=== PATIENT | female | born 1985 | race Caucasian/White ===

== ENCOUNTER 2019-07-23 06:45 | Emergency (ER) | payer OTHER ==
[~2019-07-23] VITALS: Ht 170.2 cm; Wt 78.0 kg
[2019-07-23 06:45] VITALS: BP 146/98
[2019-07-23] MEDS: KETOROLAC 60 MG/2 ML VIAL IM ONE (07:45)
[2019-07-23 07:58] VITALS: BP 146/98
== END 2019-07-23 07:59 | disposition home or self-care (01) ==
LOC: MED 06:45
DX: S50.01XA Contusion of right elbow, initial encounter (principal); I10 Essential (primary) hypertension; W01.0XXA Fall on same level from slipping, tripping and stumbling without subsequent striking against object, initial encounter; Y93.89 Activity, other specified; Y92.89 Other specified places as the place of occurrence of the external cause; Y99.8 Other external cause status
CPT/HCPCS: 73080; 96372; 99283; J1885; Q0092

== ENCOUNTER 2019-07-31 05:05 | Emergency (ER) | payer OTHER ==
[~2019-07-31] VITALS: Ht 170.2 cm; Wt 78.0 kg
[2019-07-31 05:10] VITALS: BP 147/87
[2019-07-31] MEDS ORDERED: KETOROLAC 30 MG/ML VIAL IM ONE (05:20)
[2019-07-31 07:27] VITALS: BP 147/87
== END 2019-07-31 07:28 | disposition home or self-care (01) ==
LOC: MED 05:05
DX: S82.891A Other fracture of right lower leg, initial encounter for closed fracture (principal); M25.561 Pain in right knee; I10 Essential (primary) hypertension; V28.0XXA Motorcycle driver injured in noncollision transport accident in nontraffic accident, initial encounter; Y93.55 Activity, bike riding; Y92.89 Other specified places as the place of occurrence of the external cause; Y99.8 Other external cause status
CPT/HCPCS: 29515; 73562; 73610; 96372; 99283; J1885; Q0092

== ENCOUNTER 2020-03-03 16:26 | Emergency (ER) | payer OTHER ==
[~2020-03-03] VITALS: Ht 170.2 cm; Wt 72.6 kg
[2020-03-03 16:30] VITALS: BP 141/78
--- NOTE | 2020-03-03 16:30 | NUR ---
Pt taken to bed 7.
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
--- NOTE | 2020-03-03 16:52 | NUR ---
ERMD BEDSIDE EVALUATING PT
[2020-03-03] MEDS ORDERED: KETOROLAC 60 MG/2 ML VIAL IM ONE (16:55)
--- NOTE | 2020-03-03 17:17 | NUR ---
PT TAKEN TO RAD VIA W/C
--- NOTE | 2020-03-03 17:28 | NUR ---
PT RETURNED FROM CT VIA W/C
--- NOTE | 2020-03-03 18:10 | NUR ---
Patient discharged with v/s stable. Written and verbal after care instructions given and explained. Patient alert, oriented and verbalized understanding of instructions. Ambulatory with steady gait. All questions addressed prior to discharge. ID band removed. Patient advised to follow up with PMD. Rx of Motrin and Tramadol given. Patient educated on indication of medication including possible reaction and side effects. Opportunity to ask questions provided and answered.
[2020-03-03 18:15] VITALS: BP 128/71
== END 2020-03-03 18:10 | disposition home or self-care (01) ==
LOC: MED 16:26
DX: S70.02XA Contusion of left hip, initial encounter (principal); F17.200 Nicotine dependence, unspecified, uncomplicated; I10 Essential (primary) hypertension; V18.0XXA Pedal cycle driver injured in noncollision transport accident in nontraffic accident, initial encounter; Y93.89 Activity, other specified; Y92.89 Other specified places as the place of occurrence of the external cause; Y99.8 Other external cause status
CPT/HCPCS: 73502; 81025; 96372; 99283; J1885

== ENCOUNTER 2020-03-06 14:42 | Emergency (ER) | payer OTHER ==
[~2020-03-06] VITALS: Ht 172.7 cm; Wt 77.1 kg
[2020-03-06 14:50] VITALS: BP 115/78
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
[2020-03-06] MEDS ORDERED: KETOROLAC 60 MG/2 ML VIAL IM ONE (15:05)
[2020-03-06 15:12] VITALS: BP 115/78
--- NOTE | 2020-03-06 15:12 | NUR ---
PT DIRECTED TO WAIT IN LOBBY FOR 20 MINUTES TO ENSURE TO ADVERSE EFFECTS OF TORADOL
== END 2020-03-06 15:12 | disposition home or self-care (01) ==
LOC: MED 14:42
DX: S70.02XA Contusion of left hip, initial encounter (principal); I10 Essential (primary) hypertension; F17.200 Nicotine dependence, unspecified, uncomplicated; Z98.890 Other specified postprocedural states; V87.8XXA Person injured in other specified noncollision transport accidents involving motor vehicle (traffic), initial encounter; Y93.89 Activity, other specified; Y92.89 Other specified places as the place of occurrence of the external cause; Y99.8 Other external cause status
CPT/HCPCS: 96372; 99283; J1885

== ENCOUNTER 2020-03-13 18:19 | Emergency (ER) | payer OTHER ==
[~2020-03-13] VITALS: Ht 170.2 cm; Wt 72.6 kg
[2020-03-13 18:25] VITALS: BP 158/94
--- NOTE | 2020-03-13 18:32 | NUR ---
WAIT AT LOBBY.
--- NOTE | 2020-03-13 19:16 | NUR ---
PT BROUGHT BACK FROM XRAY TO LOBBY.
--- NOTE | 2020-03-13 19:45 | NUR ---
AMBULATED TO A WITH STEADY GAIT.
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
--- NOTE | 2020-03-13 19:50 | NUR ---
EXAMINING PT IN CHAIR A
[2020-03-13] MEDS ORDERED: ACETAMINOPHEN EXTRA STRENGTH 500 MG TAB PO ONE (20:00)
[2020-03-13 20:33] VITALS: BP 158/94
--- NOTE | 2020-03-13 20:34 | NUR ---
PT LEFT FACILITY WITHOUT D/C INSTRUCTIONS.
== END 2020-03-13 20:34 | disposition home or self-care (01) ==
LOC: MED 18:19
DX: M25.561 Pain in right knee (principal); M25.571 Pain in right ankle and joints of right foot; I10 Essential (primary) hypertension; F41.9 Anxiety disorder, unspecified; V19.9XXA Pedal cyclist (driver) (passenger) injured in unspecified traffic accident, initial encounter; Y93.89 Activity, other specified; Y92.89 Other specified places as the place of occurrence of the external cause; Y99.8 Other external cause status
CPT/HCPCS: 73562; 73610; 99284

== ENCOUNTER 2020-07-11 14:39 | Emergency (ER) | payer OTHER ==
[~2020-07-11] VITALS: Ht 170.2 cm; Wt 72.6 kg
[2020-07-11 14:52] VITALS: BP 150/93
--- NOTE | 2020-07-11 15:01 | NUR ---
PT W/C ASSISTED TO BED 6.
[2020-07-11] MEDS ORDERED: KETOROLAC 60 MG/2 ML VIAL IM ONE (15:05)
--- NOTE | 2020-07-11 15:07 | NUR ---
XRAY AT BEDSIDE
--- NOTE | 2020-07-11 15:14 | NUR ---
X-RAY AT BEDSIDE
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
--- NOTE | 2020-07-11 16:08 | NUR ---
CA MASTERS SPEAKING W/ PT AT BEDSIDE
--- NOTE | 2020-07-11 16:24 | NUR ---
Patient discharged with v/s stable. Written and verbal after care instructions given and explained. Patient alert, oriented and verbalized understanding of instructions. Ambulatory with steady gait. PT CARRYING CRUTCHES. All questions addressed prior to discharge. ID band removed. Patient advised to follow up with PMD. Rx of BACTRIM AND NORCO given. Patient educated on indication of medication including possible reaction and side effects. Opportunity to ask questions provided and answered.
[2020-07-11 16:25] VITALS: BP 143/87
--- NOTE | 2020-07-11 16:25 | NUR ---
APPLIED ALVARADO WRAP TO RIGHT ANKLE WITHOUT ANY ISSUES. PT DEMONSTRATED PROPER USE OF CRUTCHES
== END 2020-07-11 16:24 | disposition home or self-care (01) ==
LOC: MED 14:39
DX: L03.113 Cellulitis of right upper limb (principal); M25.571 Pain in right ankle and joints of right foot; M79.671 Pain in right foot; I10 Essential (primary) hypertension; V98.8XXA Other specified transport accidents, initial encounter; Y93.89 Activity, other specified; Y92.89 Other specified places as the place of occurrence of the external cause; Y99.8 Other external cause status
CPT/HCPCS: 73610; 73630; 96372; 99284; J1885; Q0092

== ENCOUNTER 2020-07-15 16:38 | Emergency (ER) | payer OTHER ==
[~2020-07-15] VITALS: Ht 170.2 cm; Wt 79.4 kg
[2020-07-15 16:44] VITALS: BP 144/90
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
--- NOTE | 2020-07-15 17:07 | NUR ---
CA Timmons at bedside examining pt
[2020-07-15] MEDS ORDERED: cefTRIAXone 250 MG in LIDOCAINE MPF 1% 0.9 ML IM ONE (17:25)
[2020-07-15] MEDS ORDERED: AZITHROMYCIN 250 MG TAB PO ONE (17:25)
--- NOTE | 2020-07-15 17:26 | NUR ---
Pt ambulated to restroom, urine collected at this time.
[2020-07-15] MEDS ORDERED: cefTRIAXone 250 MG VIAL ONE (17:31)
[2020-07-15] MEDS ORDERED: LIDOCAINE MPF 1% 5 ML ONE (17:31)
[2020-07-15 17:50] VITALS: BP 144/90
--- NOTE | 2020-07-15 17:51 | NUR ---
Patient discharged with v/s stable. Written and verbal after care instructions given and explained. Patient alert, oriented and verbalized understanding of instructions. Ambulatory with steady gait. All questions addressed prior to discharge. ID band removed. Patient advised to follow up with PMD. Rx of Keflex 500mg and Benadryl 25mg given. Patient educated on indication of medication including possible reaction and side effects. Opportunity to ask questions provided and answered.
== END 2020-07-15 17:51 | disposition home or self-care (01) ==
LOC: MED 16:38
DX: R21 Rash and other nonspecific skin eruption (principal); F15.10 Other stimulant abuse, uncomplicated; A64 Unspecified sexually transmitted disease; L03.90 Cellulitis, unspecified; I10 Essential (primary) hypertension
CPT/HCPCS: 36415; 81002; 81025; 87491; 96372; 99283; J0696; J2001; Q0163

== ENCOUNTER 2020-07-27 02:10 | Emergency (ER) | payer OTHER ==
[~2020-07-27] VITALS: Ht 170.2 cm; Wt 91.9 kg
--- NOTE | 2020-07-27 02:18 | NUR ---
pt ambulated to ER bed 3 w/ steady gait.
[2020-07-27 02:19] VITALS: BP 181/116
--- NOTE | 2020-07-27 02:33 | NUR ---
PT C/O COUGH X 4 DAYS AND STARTED HAVING SOB 2 DAYS AGO. PT HAS NON-PRODUCTIVE COUGH. SHE SAYS SHE FEELS LIKE THERE IS CONGESTION IN HER CHEST. BILATERAL LUNG SOUNDS CLEAR, O2 SAT 98% ON ROOM AIR. AFEBRILE. PT CARLOS NOT BEEN AROUND ANYONE WHO'S BEEN SICK AND HAS NEVER BEEN TESTED FOR COVID. BED IN LOWEST POSITION AND SIDERAIL UP X 1. NKA MED HX - HTN
--- NOTE | 2020-07-27 02:55 | NUR ---
ROHIT SWAB COLLECTED AND WALKED TO LAB
[2020-07-27 03:25] VITALS: BP 179/101
--- NOTE | 2020-07-27 03:29 | NUR ---
Patient discharged with v/s stable. Written and verbal after care instructions given and explained. Patient alert, oriented and verbalized understanding of instructions. Ambulatory with steady gait. All questions addressed prior to discharge. ID band removed. Patient advised to follow up with PMD. Rx of ALBUTERAL INHALER AND TESSALON PERLES given. Patient educated on indication of medication including possible reaction and side effects. Opportunity to ask questions provided and answered.
== END 2020-07-27 03:27 | disposition home or self-care (01) ==
LOC: MED 02:10
DX: R05 Cough (principal); I10 Essential (primary) hypertension; Z20.828 Contact with and (suspected) exposure to other viral communicable diseases
CPT/HCPCS: 71045; 87426; 99284; Q0092

== ENCOUNTER 2021-02-11 05:50 | Emergency (ER) | payer OTHER ==
[~2021-02-11] VITALS: Ht 167.6 cm; Wt 81.6 kg
[2021-02-11 05:59] VITALS: BP 159/114
--- NOTE | 2021-02-11 06:01 | NUR ---
To ED bed 11
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
--- NOTE | 2021-02-11 06:07 | NUR ---
PT AMBULATED TO THE BATHROOM FOR URINE COLLECTION
--- NOTE | 2021-02-11 06:16 | NUR ---
Dr. Patel examining patient.
[2021-02-11] MEDS ORDERED: SULF-59 PO (06:24)
--- NOTE | 2021-02-11 06:24 | NUR ---
URINE SENT TO LAB FOR DRUG SCREEN, RECEIVED BY CLEMENT POPE
[2021-02-11] MEDS ORDERED: SULFAMETH/TRIMETH DS 800/160MG 1 TAB PO ONE (06:25)
[2021-02-11] MEDS ORDERED: IBUPROFEN 800 MG TAB PO ONE (06:25)
[2021-02-11 06:43] VITALS: BP 159/114
--- NOTE | 2021-02-11 06:43 | NUR ---
Patient discharged with v/s stable. Written and verbal after care instructions given and explained. Patient alert, oriented and verbalized understanding of instructions. Ambulatory with steady gait. All questions addressed prior to discharge. ID band removed. Patient advised to follow up with PMD. Rx of BACTRIM DS TABLET given. Patient educated on indication of medication including possible reaction and side effects. Opportunity to ask questions provided and answered.
[2021-02-11 06:49] LABS: BARBITURATE, URINE NEGATIVE ng/ml (NEG <=200); BENZODIAZEPINE, URINE NEGATIVE ng/mL (NEG <=200); CANNABINOID, URINE NEGATIVE ng/mL (NEG <=50); COCAINE, URINE NEGATIVE ng/mL (NEG <=300); PHENCYCLIDINE SCREEN,URINE NEGATIVE ng/mL (NEG <=25)
[2021-02-11 06:50] LABS: OPIATE, URINE NEGATIVE ng/mL (NEG <=2000)
== END 2021-02-11 06:43 | disposition home or self-care (01) ==
LOC: MED 05:50
DX: L02.11 Cutaneous abscess of neck (principal); I10 Essential (primary) hypertension
CPT/HCPCS: 80305; 81025; 90471; 90715; 99283

== ENCOUNTER 2021-04-04 21:17 | Emergency (ER) | payer OTHER ==
[~2021-04-04] VITALS: Ht 170.2 cm; Wt 77.1 kg
[~2021-04-04 21:17] MED LIST: SULF-59 PO
[2021-04-04 21:28] VITALS: BP 153/98
--- NOTE | 2021-04-04 21:31 | NUR ---
TO LOBBY A/W BED AMBULATORY
[2021-04-04 22:08] LABS: APPEARANCE,URINE CLEAR (CLEAR); BILIRUBIN,URINE 1+ (NEGATIVE); BLOOD, URINE 1+ (NEGATIVE); COLOR,URINE ORANGE (YELLOW); LEUKOCYTE ESTERASE ,URINE NEGATIVE (NEGATIVE); NITRITE, URINE POSITIVE (NEGATIVE); UGLUCOSE NEGATIVE (NEGATIVE)
[2021-04-04 23:32] VITALS: BP 153/98
--- NOTE | 2021-04-04 23:32 | NUR ---
NAME CALLED X 3 IN ER LOBBY - NO RESPONSE.
--- NOTE | 2021-04-04 23:32 | NUR ---
PATIENT LEFT WITHOUT BEING SEEN BY DR. MCELROY. NO FURTHER CARE PROVIDED FOR PATIENT.
[2021-04-04 23:37] LABS: WBC,URINE 20-60 /HPF (0-5)
--- NOTE | 2021-04-04 23:45 | NUR ---
CALLED PT'S PHONE # - NO RESPONSE .
--- NOTE | 2021-04-04 23:50 | NUR ---
PT CALLED REGARDING URINARY RESUTLS - NO RESPONSE - MESSAGE LEFT FOR PATIENT TO RETURN CALL TO ER.
== END 2021-04-04 23:32 | disposition left against medical advice (07) ==
LOC: MED 21:17
DX: R30.9 Painful micturition, unspecified (principal); Z53.21 Procedure and treatment not carried out due to patient leaving prior to being seen by health care provider
CPT/HCPCS: 81001; 87086; 99281

== ENCOUNTER 2021-05-11 00:15 | Emergency (ER) | payer OTHER ==
[~2021-05-11] VITALS: Ht 170.2 cm; Wt 81.6 kg
[2021-05-11 00:37] VITALS: BP 173/119
--- NOTE | 2021-05-11 00:43 | NUR ---
PATIENT TO THE BATHROOM FOR URINE COLLECTION
--- NOTE | 2021-05-11 00:45 | NUR ---
VAGINAL DISCHARGE, ITCHINESS, REDNESS AND POSSIBLY STILL HAS UTI. PATIENT HAS BURNING WHEN URINATING. HAS SOME RIGHT FLANK PAIN PMH: UTI, HTN NKA
--- NOTE | 2021-05-11 00:50 | NUR ---
AMBULATORY TO BED 12
[2021-05-11 01:44] LABS: APPEARANCE,URINE CLEAR (CLEAR); BILIRUBIN,URINE NEGATIVE (NEGATIVE); BLOOD, URINE TRACE-L (NEGATIVE); COLOR,URINE YELLOW (YELLOW); LEUKOCYTE ESTERASE ,URINE NEGATIVE (NEGATIVE); NITRITE, URINE NEGATIVE (NEGATIVE); UGLUCOSE NEGATIVE (NEGATIVE)
[2021-05-11 01:53] LABS: RBC,URINE 0-5 /HPF (0-5); WBC,URINE 0-5 /HPF (0-5)
[2021-05-11] MEDS ORDERED: SULF-58 PO (02:19)
[2021-05-11] MEDS ORDERED: FLUC150T PO (02:19)
[2021-05-11 02:26] VITALS: BP 173/119
--- NOTE | 2021-05-11 02:26 | NUR ---
Patient discharged with v/s stable. Written and verbal after care instructions given and explained. Patient alert, oriented and verbalized understanding of instructions. Ambulatory with steady gait. All questions addressed prior to discharge. Patient advised to follow up with PMD. Rx of Bactrim 400-80mg, &Diflucan 150mg given. Patient educated on indication of medication including possible reaction and side effects. Opportunity to ask questions provided and answered. Patient left without discharge paperwork
== END 2021-05-11 02:26 | disposition home or self-care (01) ==
LOC: MED 00:15
DX: N39.0 Urinary tract infection, site not specified (principal); B37.9 Candidiasis, unspecified
CPT/HCPCS: 81001; 87086; 99283

== ENCOUNTER 2021-07-28 03:09 | Emergency (ER) | payer OTHER ==
[~2021-07-28] VITALS: Ht 170.2 cm; Wt 86.2 kg
[~2021-07-28 03:09] MED LIST changes: +FLUC150T PO; +SULF-58 PO
[2021-07-28 03:22] VITALS: BP 161/109
--- NOTE | 2021-07-28 03:22 | NUR ---
to bed ambulatory
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
[2021-07-28] MEDS ORDERED: NAPR-1704 PO (04:32)
[2021-07-28] MEDS ORDERED: CYCL-711 PO (04:32)
[2021-07-28 04:42] VITALS: BP 161/109
--- NOTE | 2021-07-28 04:42 | NUR ---
SEEN AND DISCHARGED BY SYLVIA WAKEFIELD. NO NURSING INTERVENTIONS NEEDED. Patient discharged with v/s stable. Written and verbal after care instructions given and explained. Patient alert, oriented and verbalized understanding of instructions. Ambulatory with steady gait. All questions addressed prior to discharge. ID band removed. Patient advised to follow up with PMD. Rx of FLEXERIL AND NAPROSYN given. Patient educated on indication of medication including possible reaction and side effects. Opportunity to ask questions provided and answered.
== END 2021-07-28 04:42 | disposition home or self-care (01) ==
LOC: MED 03:09
DX: M54.50 Low back pain, unspecified (principal); M25.562 Pain in left knee; I10 Essential (primary) hypertension; Z79.899 Other long term (current) drug therapy; V19.9XXA Pedal cyclist (driver) (passenger) injured in unspecified traffic accident, initial encounter; Y93.89 Activity, other specified; Y92.89 Other specified places as the place of occurrence of the external cause; Y99.8 Other external cause status
CPT/HCPCS: 99283

== ENCOUNTER 2021-09-22 21:16 | Emergency (ER) | payer OTHER ==
[~2021-09-22] VITALS: Ht 170.2 cm; Wt 81.6 kg
[2021-09-22 21:16] VITALS: BP 204/123
[~2021-09-22 21:16] MED LIST changes: +CYCL-711 PO; +NAPR-1704 PO
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
--- NOTE | 2021-09-22 21:16 | NUR ---
VAHID [place]PTON VIA GURNEY TO BED 07.
[2021-09-22] MEDS ORDERED: KETOROLAC 60 MG/2 ML VIAL IM ONE (21:50)
[2021-09-22] MEDS ORDERED: diazePAM 5 MG TAB PO ONE (22:35)
[2021-09-22] MEDS ORDERED: MORPHINE SULFATE 4 MG/ML SYR IVP ONE (22:35)
[2021-09-22] MEDS ORDERED: MORPHINE SULFATE 4 MG/ML SYR IM ONE (23:40)
--- NOTE | 2021-09-23 01:00 | NUR ---
DR MACK ESTABLISHED IV UTILIZING US. LABS DRAWN AND SENT TO LAB
[2021-09-23 01:15] LABS: BASOPHILS % (AUTO) 0.4 % (0.0-2.0); EOSINOPHILS # (AUTO) 0.1 K/uL (0-0.4); EOSINOPHILS % (AUTO) 1.5 % (0.0-4.0); HEMATOCRIT 38.1 % (36-48); LYMPHOCYTES # (AUTO) 1.6 K/uL (2.5-16.5); LYMPHOCYTES % (AUTO) 29.7 % (20.5-51.1); MEAN CORPUSCULAR HEMOGLOBIN 29 pg (27-31); MEAN CORPUSCULAR HGB CONC 34 g/dL (33-37); MONOCYTES # (AUTO) 0.4 K/uL (0.8-1.0); MONOCYTES % (AUTO) 7.9 % (1.7-9.3); NEUTROPHILS # (AUTO) 3.2 K/uL (1.8-7.7); NEUTROPHILS % (AUTO) 60.5 % (42.2-75.2); PLATELET COUNT (AUTO) 242 K/uL (140-450); RED BLOOD CELL COUNT(AUTO) 4.47 MIL/uL (4.20-5.40); RED CELL DISTRIBUTION WIDTH 13.2 % (11.6-13.7); WHITE BLOOD COUNT (AUTO) 5.2 K/uL (4.8-10.8)
[2021-09-23 01:33] LABS: ALBUMIN 3.6 g/dL (3.4-5.0); BILIRUBIN,DIRECT 0.1 mg/dL (0.0-0.3); TOTAL BILIRUBIN 0.3 mg/dL (0.0-1.0)
[2021-09-23 01:36] LABS: ANION GAP 11.6 (8-16); CARBON DIOXIDE 28.9 mmol/L (21-32); CREATININE 0.7 mg/dL (0.6-1.3); POTASSIUM 3.5 mmol/L (3.5-5.1)
[2021-09-23 02:05] VITALS: BP 204/123
--- NOTE | 2021-09-23 02:05 | NUR ---
Patient discharged with v/s stable. Written and verbal after care instructions given and explained. Patient verbalized understanding. Ambulatory with steady gait. All questions addressed prior to discharge. Advised to follow up with PMD.
== END 2021-09-23 02:05 | disposition home or self-care (01) ==
LOC: MED 21:16
DX: M54.2 Cervicalgia (principal); F15.90 Other stimulant use, unspecified, uncomplicated; F17.200 Nicotine dependence, unspecified, uncomplicated; I10 Essential (primary) hypertension; Z79.899 Other long term (current) drug therapy
CPT/HCPCS: 36415; 71045; 80048; 80076; 83690; 84484; 85025; 93005; 96372; 99285; J1885; J2270; Q0092

== ENCOUNTER 2021-11-07 19:17 | Emergency (ER) | payer OTHER ==
[~2021-11-07] VITALS: Ht 170.2 cm; Wt 90.7 kg
[2021-11-07 19:26] VITALS: BP 167/83
--- NOTE | 2021-11-07 19:26 | NUR ---
PT OFFLOADED TO LOBBY.
[2021-11-07] MEDS ORDERED: NAPR-54 PO (20:43)
[2021-11-07] MEDS ORDERED: KETOROLAC 30 MG/ML VIAL IM ONE (20:45)
[2021-11-07 22:00] VITALS: BP 167/83
== END 2021-11-07 22:00 | disposition home or self-care (01) ==
LOC: MED 20:24
DX: S83.92XA Sprain of unspecified site of left knee, initial encounter (principal); I10 Essential (primary) hypertension; Z79.899 Other long term (current) drug therapy; Z98.890 Other specified postprocedural states; Y93.89 Activity, other specified; Y92.89 Other specified places as the place of occurrence of the external cause; Y99.8 Other external cause status
CPT/HCPCS: 29505; 73562; 96372; 99283; J1885

== ENCOUNTER 2022-07-02 04:09 | Emergency (ER) | payer OTHER ==
[~2022-07-02] VITALS: Ht 170.2 cm; Wt 102.3 kg
[~2022-07-02 04:09] MED LIST changes: +NAPR-54 PO
[2022-07-02 04:59] VITALS: BP 177/113
--- NOTE | 2022-07-02 05:03 | NUR ---
PT TO LOBBY
--- NOTE | 2022-07-02 05:36 | NUR ---
Female Manager Oncology accompanied female patient for BREAST Exam.
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
--- NOTE | 2022-07-02 05:42 | NUR ---
PT TO BED 11. PLACED IN GOWN AND GIVEN WARM BLANKET.
[2022-07-02 06:30] VITALS: BP 177/113
== END 2022-07-02 06:30 | disposition home or self-care (01) ==
LOC: MED 04:09
DX: D24.2 Benign neoplasm of left breast (principal); I10 Essential (primary) hypertension; Z98.890 Other specified postprocedural states; Z79.899 Other long term (current) drug therapy
CPT/HCPCS: 76641; 99284; Q0092

== ENCOUNTER 2022-07-03 02:50 | Emergency (ER) | payer OTHER ==
[~2022-07-03] VITALS: Ht 170.2 cm; Wt 102.1 kg
[2022-07-03 03:03] VITALS: BP 166/109
--- NOTE | 2022-07-03 03:09 | NUR ---
TO LOBBY FOLLOWING TRIAGE
--- NOTE | 2022-07-03 05:36 | NUR ---
PT CALLED IN LOBBY AND OUTSIDE x3 WITH NO ANSWER. PATIENT LEFT WITHOUT BEING SEEN BY DR. JULES. NO FURTHER CARE PROVIDED FOR PATIENT.
== END 2022-07-03 05:36 | disposition left against medical advice (07) ==
LOC: MED 02:50
DX: R06.02 Shortness of breath (principal); Z53.21 Procedure and treatment not carried out due to patient leaving prior to being seen by health care provider

== ENCOUNTER 2022-08-15 10:06 | Emergency (ER) | payer OTHER ==
[~2022-08-15] VITALS: Ht 170.2 cm; Wt 102.1 kg
[2022-08-15 10:14] VITALS: BP 147/96
--- NOTE | 2022-08-15 10:35 | NUR ---
37/F WALKED IN C/O BRIGHTRED BLOOD IN STOOL AND WHEN SHE WIPES. STATES ONSET FOR 1 WK. DENIES ANY ABD PAIN. DENIES VAGINAL BLEED OR DYSURIA. AAO4, AMBULATORY, DENIES NVD. URINE COLLECTED. NKA PMH: HTN
--- NOTE | 2022-08-15 11:37 | NUR ---
BILLIARD TABLE ASSEMBLER AT BEDSIDE FOR BLOOD DRAW
--- NOTE | 2022-08-15 11:41 | NUR ---
PT BLOOD UNABLE TO BE OBTAINED BY MACHINE WOOD SANDER AFTER ATTEMPTS. WHEN PROMPTED FOR A DRAW BY RN, PT REFUSED, STATING SHE DOES NOT WANT ANY BLOOD DRAW AT THIS TIME.
--- NOTE | 2022-08-15 12:04 | NUR ---
guaiac TEST PERFORMED BY CA MARIANO. NEGATIVE BLOOD IN STOOL PER TEST.
[2022-08-15] MEDS ORDERED: HYD2.5O TP (12:13)
[2022-08-15] MEDS ORDERED: DOCU-299 PO (12:13)
[2022-08-15] MEDS ORDERED: MIRABULK PO (12:13)
--- NOTE | 2022-08-15 12:15 | NUR ---
Patient discharged with v/s stable. Written and verbal after care instructions given and explained. Patient alert, oriented and verbalized understanding of instructions. Ambulatory with steady gait. All questions addressed prior to discharge. ID band removed. Patient advised to follow up with PMD. Patient educated on indication of medication including possible reaction and side effects. Opportunity to ask questions provided and answered.
[2022-08-15 12:47] LABS: APPEARANCE,URINE SL CLOUDY (CLEAR); BILIRUBIN,URINE NEGATIVE (NEGATIVE); BLOOD, URINE NEGATIVE (NEGATIVE); COLOR,URINE YELLOW (YELLOW); LEUKOCYTE ESTERASE ,URINE 1+ (NEGATIVE); NITRITE, URINE NEGATIVE (NEGATIVE); UGLUCOSE NEGATIVE (NEGATIVE)
[2022-08-15 12:58] LABS: RBC,URINE 0-5 /HPF (0-5)
== END 2022-08-15 12:15 | disposition home or self-care (01) ==
LOC: MED 10:06
DX: K64.4 Residual hemorrhoidal skin tags (principal); I10 Essential (primary) hypertension; Z79.899 Other long term (current) drug therapy
CPT/HCPCS: 81001; 87086; 99283

== ENCOUNTER 2022-10-13 09:16 | Emergency (ER) | payer OTHER ==
[~2022-10-13] VITALS: Ht 170.2 cm; Wt 99.8 kg
[~2022-10-13 09:16] MED LIST changes: +DOCU-299 PO; +HYD2.5O TP; +MIRABULK PO
[2022-10-13 09:19] VITALS: BP 141/94
--- NOTE | 2022-10-13 09:22 | NUR ---
PT AMBULATED TO BED 11
[2022-10-13] MEDS ORDERED: KETOROLAC 60 MG/2 ML VIAL IM ONE (09:35)
[2022-10-13] MEDS ORDERED: CEPH-588 PO (10:38)
[2022-10-13] MEDS ORDERED: IBUP-2213 PO (10:38)
[2022-10-13 10:45] VITALS: BP 157/108
== END 2022-10-13 10:48 | disposition home or self-care (01) ==
LOC: MED 09:16
DX: L03.113 Cellulitis of right upper limb (principal); I10 Essential (primary) hypertension; Z79.899 Other long term (current) drug therapy
CPT/HCPCS: 96372; 99283; J1885

== ENCOUNTER 2023-10-25 16:03 | Emergency (ER) | payer MEDICAID ==
[~2023-10-25] VITALS: Ht 167.6 cm; Wt 72.6 kg
[~2023-10-25 16:03] MED LIST changes: +ACET-10509 PO; +ACET-8905 PO; +APIX5TAB PO; +BEN10 PO; +CEFD300C3 PO; -CYCL-711 PO; -DOCU-299 PO; -FLUC150T PO; -HYD2.5O TP; -MIRABULK PO; -NAPR-1704 PO; -NAPR-54 PO; +NITR100C7 PO; +ONDA-188 PO; -SULF-58 PO
[2023-10-25 16:19] VITALS: BP 165/118; PULSE 95; RESP 18; TEMP 98; O2SAT 98
[2023-10-25] MEDS ORDERED: ALUMINUM HYD/MAG/SIMETHICONE 30 ML UDC PO ONE (17:10)
[2023-10-25 18:20] LABS: APPEARANCE,URINE SL CLOUDY (CLEAR); BILIRUBIN,URINE NEGATIVE (NEGATIVE); BLOOD, URINE NEGATIVE (NEGATIVE); COLOR,URINE YELLOW (YELLOW); LEUKOCYTE ESTERASE ,URINE 1+ (NEGATIVE); NITRITE, URINE POSITIVE (NEGATIVE); PROTEIN,URINE 2+ (NEGATIVE); UGLUCOSE NEGATIVE (NEGATIVE)
[2023-10-25 18:22] LABS: BACTERIA,URINE 3+ /HPF (None Seen); RBC,URINE 0 /HPF (0-5)
[2023-10-25 18:23] LABS: MUCUS,URINE None Seen /LPF (None Seen); SQUAMOUS EPITHELIAL CELL,UR 4-10 (MOD) /LPF (0-3 (FEW))
== END 2023-10-25 18:45 | disposition left against medical advice (07) ==
LOC: MED 16:03
DX: R10.13 Epigastric pain (principal); I10 Essential (primary) hypertension; Z79.899 Other long term (current) drug therapy
CPT/HCPCS: 81001; 81025; 82948; 87086; 93005; 99284

== ENCOUNTER 2023-12-12 19:54 | Emergency (ER) | payer MEDICAID, OTHER ==
[~2023-12-12] VITALS: Ht 170.2 cm; Wt 85.3 kg
[2023-12-12 20:41] VITALS: BP 155/84; PULSE 117; RESP 20; TEMP 97.2; O2SAT 100
== END 2023-12-12 23:11 | disposition left against medical advice (07) ==
LOC: MED 19:55
DX: K62.5 Hemorrhage of anus and rectum (principal); Z53.21 Procedure and treatment not carried out due to patient leaving prior to being seen by health care provider
CPT/HCPCS: 99281

== ENCOUNTER 2024-02-07 03:55 | Observation (INO) | payer MEDICAID, OTHER ==
[~2024-02-07] VITALS: Ht 170.2 cm; Wt 83.0 kg
[2024-02-07 04:09] VITALS: BP 154/106; PULSE 93; RESP 18; TEMP 97.2; O2SAT 98
[2024-02-07 04:15] VITALS: TEMP 97.2
[2024-02-07] MEDS: NITROGLYCERIN 2% 1 GM PKT TP ONE (04:35)
[2024-02-07] MEDS: ASPIRIN 325 MG TAB PO ONE (04:40)
[2024-02-07] MEDS: MORPHINE SULFATE 4 MG/ML SYR IVP ONE (05:15)
[2024-02-07 05:46] LABS: BASOPHILS % (AUTO) 0.8 % (0.0-2.0); EOSINOPHILS # (AUTO) 0.1 K/uL (0-0.4); EOSINOPHILS % (AUTO) 1.3 % (0.0-4.0); HEMATOCRIT 36.8 % (36-48); HEMOGLOBIN 12.5 g/dL (12.0-16.0); LYMPHOCYTES # (AUTO) 2.3 K/uL (2.5-16.5); LYMPHOCYTES % (AUTO) 34.9 % (20.5-51.1); MEAN CORPUSCULAR HEMOGLOBIN 29 pg (27-31); MEAN CORPUSCULAR HGB CONC 34 g/dL (33-37); MEAN CORPUSCULAR VOLUME 84.2 fL (80-94); MONOCYTES # (AUTO) 0.5 K/uL (0.8-1.0); MONOCYTES % (AUTO) 7.9 % (1.7-9.3); NEUTROPHILS # (AUTO) 3.6 K/uL (1.8-7.7); NEUTROPHILS % (AUTO) 55.1 % (42.2-75.2); PLATELET COUNT (AUTO) 179 K/uL (140-450); RED BLOOD CELL COUNT(AUTO) 4.37 MIL/uL (4.20-5.40); WHITE BLOOD COUNT (AUTO) 6.5 K/uL (4.8-10.8)
[2024-02-07 06:06] LABS: ALANINE AMINOTRANSFERASE 19 U/L (12-78); ALBUMIN 3.5 g/dL (3.4-5.0); ALKALINE PHOSPHATASE 74 U/L (50-136); ASPARTATE AMINOTRANSFERASE 18 U/L (15-37); BILIRUBIN,DIRECT 0.1 mg/dL (0.0-0.3); TOTAL BILIRUBIN 0.3 mg/dL (0.0-1.0); TOTAL PROTEIN, SERUM 6.5 g/dL (6.4-8.2)
[2024-02-07 06:10] LABS: ANION GAP 11.8 (8-16); CARBON DIOXIDE 28.5 mmol/L (21-32); POTASSIUM 3.3 mmol/L (3.5-5.1)
[2024-02-07 06:11] LABS: CALCIUM 8.4 mg/dL (8.5-10.1); CREATININE 0.7 mg/dL (0.6-1.3)
[2024-02-07] MEDS ORDERED: METF-350 PO (07:08)
[2024-02-07] MEDS ORDERED: SEMA0.258 SQ (07:08)
[2024-02-07] MEDS ORDERED: LISI-486 PO (07:08)
[2024-02-07] MEDS ORDERED: KCL 20 MEQ IN 100 mL PREMIX 200 ML IV PRN (08:05)
[2024-02-07] MEDS ORDERED: POTASSIUM CHLORIDE 10 MEQ TABER PO PRN (08:05)
[2024-02-07] MEDS ORDERED: HYDROcodone/APAP 5/325 MG 1 TAB TAB PO PRN (08:05)
[2024-02-07] MEDS ORDERED: MAGNESIUM OXIDE 400 MG TAB PO PRN (08:05)
[2024-02-07] MEDS ORDERED: ACETAMINOPHEN 325 MG TAB PO PRN (08:05)
[2024-02-07] MEDS ORDERED: MAG SULF 2000 MG/WATER PREMIX 50 ML IV PRN (08:05)
[2024-02-07] MEDS ORDERED: NITROGLYCERIN 0.4 MG TAB SL PRN (08:10)
[2024-02-07] MEDS ORDERED: DEXTROSE 50% 50 ML SYR IVP PRN (08:15)
[2024-02-07] MEDS ORDERED: INSULIN LISPRO SLIDING SCALE 100 UNITS/ML VIAL SUBQ PRN (08:15)
[2024-02-07] MEDS: POTASSIUM CHLORIDE 10 MEQ TABER PO ONE (08:36)
[2024-02-07] MEDS: ATORVASTATIN 20 MG TAB PO SCH (08:39)
[2024-02-07] MEDS: ENOXAPARIN 40 MG/0.4 ML SYR SUBQ SCH (08:43)
[2024-02-07] MEDS: MORPHINE SULFATE 2 MG/ML SYR IVP PRN (08:59)
[2024-02-07 09:51] VITALS: BP 129/87; PULSE 90; RESP 11; O2SAT 99
[2024-02-07 10:12] LABS: CHOL/HDL RATIO 2.6 (1-4.5)
[2024-02-07] MEDS ORDERED: BLOOD GLUCOSE MONITORING 1 DEV DEV FS SCH (11:30)
[2024-02-08] MEDS ORDERED: ASPIRIN 81 MG TAB.CHEW PO SCH (09:00)
== END 2024-02-07 09:45 | disposition left against medical advice (07) ==
LOC: MED 03:55 → INTOOBSV 08:04 → MTU 08:04
PROVIDERS: ADMIT Internal Medicine; ATTEND Internal Medicine
DX: R07.89 Other chest pain (principal); I20.9 Angina pectoris, unspecified; I10 Essential (primary) hypertension; E78.5 Hyperlipidemia, unspecified; E11.9 Type 2 diabetes mellitus without complications; E87.6 Hypokalemia; Z79.899 Other long term (current) drug therapy
CPT/HCPCS: 36415; 71045; 80048; 80061; 80076; 83036; 83880; 84484; 85025; 85379; 93005; 96372; 96374; 96376; 99285; G0378; J1650; J2270